=== PATIENT | female | born 1950 | race Caucasian/White ===

== ENCOUNTER → 2018-07-25 | Outpatient (CLI) | payer OTHER ==
[~2018-07-25] MED LIST: AMOX1TAB12 PO; AVAPRO150 MG; HUMALOG MIX 75/10 ML; LEVSIN/SL0.125 MG SL; LIPITOR40 MG; MUPIROCIN22 GM TOP; NEURONTIN600 MG; NEURONTIN800 MG; OMEPRAZOLE20 MG; PHENERGAN25 MG PO; PLAVIX75 MG; PNEU16DI2; PREDNISONE10 MG PO; ULTRACET PO; VITAMIN B122500 MC1
== END | disposition home or self-care (01) ==
LOC: NUCLEAR 10:00
DX: I73.9 Peripheral vascular disease, unspecified (principal); M79.662 Pain in left lower leg; M79.661 Pain in right lower leg

== ENCOUNTER 2019-05-17 21:49 | Emergency (ER) | payer OTHER ==
[~2019-05-17] VITALS: Ht 170.2 cm; Wt 136.1 kg
[2019-05-17] MEDS ORDERED: DOLOGEN CAPLET1 EACH (22:40)
[2019-05-17] MEDS ORDERED: ANASTROZOLE (22:40)
[2019-05-18] MEDS ORDERED: ULTRACET PO (02:59)
[2019-05-18] MEDS ORDERED: NORFLEX100MG PO (03:00)
== END 2019-05-18 03:08 | disposition home or self-care (01) ==
LOC: ER 21:49
DX: M54.5 Low back pain (principal)

== ENCOUNTER 2020-02-12 10:20 | Outpatient (CLI) | payer OTHER ==
[~2020-02-12 10:20] MED LIST changes: +ANASTROZOLE; +DOLOGEN CAPLET1 EACH; +NORFLEX100MG PO
== END 2020-02-12 10:25 | disposition home or self-care (01) ==
LOC: NUCLEAR 10:20
PROVIDERS: ATTEND Family Medicine
DX: E11.42 Type 2 diabetes mellitus with diabetic polyneuropathy (principal); Z75.4 Unavailability and inaccessibility of other helping agencies; E11.51 Type 2 diabetes mellitus with diabetic peripheral angiopathy without gangrene; I73.9 Peripheral vascular disease, unspecified; M25.561 Pain in right knee; M25.562 Pain in left knee; I87.2 Venous insufficiency (chronic) (peripheral)

== ENCOUNTER 2020-02-12 11:55 | Outpatient (CLI) | payer OTHER | END 2020-02-12 12:07 | disposition home or self-care (01) | LOC: MAMO-SONO 11:55 | PROVIDERS: ATTEND Family Medicine | DX: Z12.31 Encounter for screening mammogram for malignant neoplasm of breast (principal); C50.012 Malignant neoplasm of nipple and areola, left female breast ==

== ENCOUNTER 2020-09-07 15:50 | Emergency (ER) | payer OTHER ==
[~2020-09-07] VITALS: Ht 170.2 cm; Wt 102.1 kg
== END 2020-09-07 18:57 | disposition home or self-care (01) ==
LOC: ER 15:50
DX: R21 Rash and other nonspecific skin eruption (principal); T78.49XA Other allergy, initial encounter; X58.XXXA Exposure to other specified factors, initial encounter

== ENCOUNTER 2020-09-12 15:09 | Outpatient (CLI) | payer OTHER | END 2020-09-12 15:18 | disposition home or self-care (01) | LOC: MAMO-SONO 15:09 | PROVIDERS: ATTEND Internal Medicine | DX: N60.01 Solitary cyst of right breast (principal); Z12.31 Encounter for screening mammogram for malignant neoplasm of breast; N60.11 Diffuse cystic mastopathy of right breast; N60.12 Diffuse cystic mastopathy of left breast; C50.312 Malignant neoplasm of lower-inner quadrant of left female breast ==

== ENCOUNTER 2020-12-19 18:29 | Emergency (ER) | payer OTHER ==
[~2020-12-19] VITALS: Ht 175.3 cm; Wt 108.9 kg
== END 2020-12-19 23:45 | disposition home or self-care (01) ==
LOC: ER 18:29
DX: M54.2 Cervicalgia (principal); M62.838 Other muscle spasm; N20.0 Calculus of kidney; N39.0 Urinary tract infection, site not specified

== ENCOUNTER 2021-02-15 23:53 | Inpatient (IN) | payer OTHER ==
[~2021-02-15] VITALS: Ht 172.7 cm; Wt 124.7 kg
== END 2021-02-18 15:10 | disposition home or self-care (01) | DRG 392 ==
LOC: ER 23:53 → MEDI 02-16 09:23
PROVIDERS: ADMIT Internal Medicine; ATTEND Internal Medicine
DX: K52.89 Other specified noninfective gastroenteritis and colitis (principal); R65.10 Systemic inflammatory response syndrome (SIRS) of non-infectious origin without acute organ dysfunction; R10.9 Unspecified abdominal pain; R19.7 Diarrhea, unspecified; I10 Essential (primary) hypertension; E11.9 Type 2 diabetes mellitus without complications; Z20.822 Contact with and (suspected) exposure to COVID-19; E66.01 Morbid (severe) obesity due to excess calories; E78.49 Other hyperlipidemia

== ENCOUNTER 2021-09-28 13:44 | Outpatient (CLI) | payer OTHER | END 2021-09-28 13:58 | disposition home or self-care (01) | LOC: MAMO-SONO 13:44 | PROVIDERS: ATTEND Internal Medicine | DX: Z12.31 Encounter for screening mammogram for malignant neoplasm of breast (principal); N60.11 Diffuse cystic mastopathy of right breast; N60.12 Diffuse cystic mastopathy of left breast ==

== ENCOUNTER 2022-05-29 16:38 | Emergency (ER) | payer OTHER ==
[~2022-05-29] VITALS: Ht 172.7 cm; Wt 120.7 kg
[2022-05-29] MEDS ORDERED: CYCLOBENZAPRINE10 MG PO (23:37)
[2022-05-29] MEDS ORDERED: TYLENOL ARTHRI650 MG PO (23:37)
== END 2022-05-29 23:51 | disposition home or self-care (01) ==
LOC: ER 16:38
DX: S29.9XXA Unspecified injury of thorax, initial encounter (principal); W18.30XA Fall on same level, unspecified, initial encounter; Y93.9 Activity, unspecified; Y92.413 State road as the place of occurrence of the external cause; S89.92XA Unspecified injury of left lower leg, initial encounter; S09.90XA Unspecified injury of head, initial encounter; Z88.6 Allergy status to analgesic agent; M79.7 Fibromyalgia; I10 Essential (primary) hypertension

== ENCOUNTER 2024-11-16 14:28 | Outpatient (CLI) | payer OTHER ==
[~2024-11-16 14:28] MED LIST changes: +ANASTROZOLE1 MG; +CYCLOBENZAPRINE10 MG PO; +GABAPENTIN600 MG; +GRALISE600 MG PO; +HUMALOG MI100 UNIT/2; +IRBESARTAN150 MG; +LIPITOR40 M1 PO; +LOSARTAN POTASS50 MG PO; +PLAVIX75 MG PO; +PRILOSEC OTC20 MG PO; +TYLENOL ARTHRI650 MG PO
== END 2024-11-16 14:31 | disposition home or self-care (01) ==
LOC: MAMO-SONO 14:28
PROVIDERS: ATTEND Obstetrics & Gynecology Obstetrics
DX: C50.312 Malignant neoplasm of lower-inner quadrant of left female breast (principal); N60.11 Diffuse cystic mastopathy of right breast; N60.12 Diffuse cystic mastopathy of left breast; Z12.31 Encounter for screening mammogram for malignant neoplasm of breast

== ENCOUNTER 2024-12-24 03:02 | Inpatient (IN) | payer OTHER ==
[~2024-12-24] VITALS: Ht 172.7 cm; Wt 67.6 kg
[2024-12-24] MEDS ORDERED: ANASTROZOLE1 MG PO (03:15)
--- NOTE | 2024-12-24 03:20 | NUR ---
SE RECIBE PTE ALERTA Y ORIENTADA X3. PTE REFIERE MARISSA DOLOR EN BRAZO SOM HACE MARYJANE CRAMER REFIERE QUE SE LEVANTO CON EL DOLOR. SE MIDEN S/V Y SE UBICA.
[2024-12-24] MEDS ORDERED: MORPHINE SULFATE 4 MG/ML VIAL IV STA (06:39)
[2024-12-24] MEDS ORDERED: CEFTRIAXONE SODIUM 2,000 MG VIAL IV ONE (08:30)
--- NOTE | 2024-12-24 08:33 | NUR ---
SE ORIENTA A PACIENTE SOBRE TX MEDICO Y EL MISMO REFIERE ENTENDER Y ACEPTAR. SE RODRIGO S/V A PACIENTE BP: 175/92 Y SE ADMINISTRA MEDICAMENTO PHILLIP ORDEN MEDICA BAJO MEDIDAS ASEPTICAS. SE RODRIGO MUESTRAS DE LABORATORIO BAJO MEDIDAS ASEPTICAS.
[2024-12-24 08:39] LABS: BASO % 0.2 % (0.1-1.2); EOS # 0.07 (0.04-0.54); EOS % 0.7 % (0.7-7.0); HEMATOCRIT 34.4 % (34.1-44.9); LYMPH # 2.34 (1.18-3.74); LYMPH % 23.2 % (19.3-53.1); MEAN CORPUSCULAR HEMOGLOBIN 27.6 pg (25.6-32.2); MONO # 0.93 (0.24-0.82); MONO % 9.2 % (4.7-12.5); NEUT % 66.3 % (34.0-71.1); PLATELET COUNT 227 K/uL (163-369); RED BLOOD COUNT 3.99 M/uL (3.93-5.22); RED CELL DISTRIBUTION WIDTH 14.3 % (11.6-14.4)
[2024-12-24 09:13] LABS: ALBUMIN 3.4 gm/dL (3.4-5.0); BILIRUBIN TOTAL 0.85 mg/dL (0.3-1.2); CALCIUM 9.1 mg/dL (8.5-10.1); CREATININE SERUM 0.77 mg/dL (0.55-1.02); GFR 73.28; GLOBULINA 3.9 G/DL (2.4-3.5); POTASSIUM 3.5 mEq/L (3.5-5.1); TOTAL PROTEIN 7.3 gm/dL (6.4-8.2)
[2024-12-24 09:14] LABS: INR 1.14; PARTIAL THROMBOPLASTIN TIME 26.8 SECONDS (22.0-34.0); PROTHROMBIN TIME 12.3 SECONDS (9.0-11.5)
[2024-12-24 09:18] LABS: PH,URINE 5.5 (5.0-8.0); URINE APPEARANCE Clear; URINE BILIRRUBIN Negative (NEGATIVE); URINE BLOOD Negative; URINE COLOR Yellow; URINE GLUCOSE Negative (NEGATIVE); URINE KETONE Negative (NEGATIVE); URINE LEUKOCYTE Negative; URINE NITRATE Negative
[2024-12-24 09:19] LABS: URINE BACTERIA 83.2 uL (0.0-1933); URINE EPITHELIAL CELLS 3.7 uL (0.0-38.8); URINE RBC 17.5 uL (0.0-20.8)
[2024-12-24 09:47] LABS: URINE CAST 0.14 uL (0.0-1.40); URINE PROTEIN 100 (NEGATIVE)
[2024-12-24] MEDS ORDERED: CEFTRIAXONE SODIUM 1,000 MG VIAL ONE (13:57)
[2024-12-24] MEDS ORDERED: 0.9 % SODIUM CHLORIDE 1,000 ML IV SCH (20:00)
[2024-12-24] MEDS ORDERED: CEFTRIAXONE SODIUM 2,000 MG in 0.9 % SODIUM CHLORIDE 100 ML IV SCH (20:08)
[2024-12-24] MEDS ORDERED: LOSARTAN POTASSIUM 50 MG TABLET PO SCH (20:08)
[2024-12-24] MEDS ORDERED: ENOXAPARIN SODIUM 40 MG/0.4 ML SYRINGE SUBCUTANEO SCH (20:09)
[2024-12-24] MEDS ORDERED: INSULIN LISPRO 1,000 UNIT/10 ML UNITS SUBCUTANEO PRN (20:15)
[2024-12-24] MEDS ORDERED: MORPHINE SULFATE 2 MG/ML CARTRIDGE IV SCH (20:15)
[2024-12-24] MEDS ORDERED: DEXTROSE 50 % IN WATER 0.5 G/ML DISP.SYRIN IV PRN (20:15)
[2024-12-24] MEDS ORDERED: CEFTRIAXONE SODIUM 2,000 MG VIAL ONE (23:41)
[2024-12-25] MEDS ORDERED: ENOXAPARIN SODIUM 40 MG/0.4 ML SYRINGE SUBCUTANEO ONE (00:51)
[2024-12-25] MEDS ORDERED: INSULIN LISPRO 1,000 UNIT/10 ML UNITS SUBCUTANEO ONE (00:52)
[2024-12-25 01:49] LABS: PHOSPHOROUS 3.4 mg/dL (2.5-4.9)
[2024-12-25 02:07] LABS: C-REACTIVE PROTEIN 7.32 MG/DL (0.00-0.29); MAGNESIUM 0.9 mg/dL (1.8-2.4)
[2024-12-25 08:59] VITALS: BP 162/79; O2SAT 94
[2024-12-25] MEDS ORDERED: ATORVASTATIN CALCIUM 40 MG TABLET PO SCH (09:00)
[2024-12-25] MEDS ORDERED: GABAPENTIN 600 MG TABLET PO SCH (09:00)
[2024-12-25] MEDS ORDERED: METHYLPREDNISOLONE SOD SUCC 40 MG VIAL IV SCH (12:06)
[2024-12-25] MEDS ORDERED: TRAMADOL HCL 50 MG TABLET PO SCH (13:00)
[2024-12-25] MEDS ORDERED: MAGNESIUM SULFATE IN WATER 4 GM/100 ML PIGGYBACK IV NR (14:05)
[2024-12-25 14:11] VITALS: BP 179/76; O2SAT 98
[2024-12-25 17:40] LABS: COVID-19 AG NEGATIVE (NEGATIVE)
[2024-12-25 18:21] VITALS: BP 172/57
[2024-12-25] MEDS ORDERED: VANCOMYCIN HCL 1,000 MG VIAL IV SCH (21:00)
[2024-12-25] MEDS ORDERED: CYCLOBENZAPRINE HCL 5 MG TABLET PO SCH (21:00)
[2024-12-25 22:51] LABS: PH,URINE 5.5 (5.0-8.0); URINE APPEARANCE Clear; URINE BILIRRUBIN Negative (NEGATIVE); URINE BLOOD Trace; URINE COLOR Yellow; URINE KETONE 15 (NEGATIVE); URINE LEUKOCYTE Negative; URINE NITRATE Negative; URINE PROTEIN 30 (NEGATIVE); URINE UROBILINOGEN 0.2 E.U./dl
[2024-12-25 22:52] LABS: URINE EPITHELIAL CELLS 1.4 uL (0.0-38.8); URINE RBC 23.2 uL (0.0-20.8)
[2024-12-25 22:59] LABS: URINE GLUCOSE 100 MG/DL (NEGATIVE)
[2024-12-26 00:42] VITALS: BP 174/76
[2024-12-26 08:27] VITALS: BP 191/75; O2SAT 95
[2024-12-26 08:32] LABS: BASO % 0.1 % (0.1-1.2); HEMATOCRIT 34.6 % (34.1-44.9); HEMOGLOBIN 11.1 g/dL (11.2-15.7); LYMPH # 1.14 (1.18-3.74); LYMPH % 11.9 % (19.3-53.1); MEAN CORPUSCULAR HEMOGLOBIN 27.6 pg (25.6-32.2); MONO % 3.1 % (4.7-12.5); NEUT # 8.07 (1.56-6.13); NEUT % 84.5 % (34.0-71.1); PLATELET COUNT 240 K/uL (163-369); RED BLOOD COUNT 4.02 M/uL (3.93-5.22); RED CELL DISTRIBUTION WIDTH 13.9 % (11.6-14.4)
[2024-12-26 08:47] LABS: BILIRUBIN TOTAL 0.5 mg/dL (0.3-1.2); CALCIUM 8.9 mg/dL (8.5-10.1); CREATININE SERUM 0.69 mg/dL (0.55-1.02); GFR 83.17; MAGNESIUM 2.3 mg/dL (1.8-2.4); PHOSPHOROUS 3.6 mg/dL (2.5-4.9)
[2024-12-26 08:55] LABS: C-REACTIVE PROTEIN 12.6 MG/DL (0.00-0.29)
[2024-12-26] MEDS ORDERED: INSULIN GLARGINE,HUM.REC.ANLOG 1,000 UNITS/10 ML UNITS SUBCUTANEO STA (10:47)
[2024-12-26] MEDS ORDERED: INSULIN LISPRO 1,000 UNIT/10 ML UNITS SUBCUTANEO SCH (12:00)
[2024-12-26 16:00] VITALS: BP 164/70; O2SAT 95
[2024-12-26] MEDS ORDERED: INSULIN GLARGINE,HUM.REC.ANLOG 1,000 UNITS/10 ML UNITS SUBCUTANEO SCH (21:00)
[2024-12-27 00:44] VITALS: BP 170/78
[2024-12-27 08:42] VITALS: BP 151/80; O2SAT 97
[2024-12-27] MEDS ORDERED: INSULIN GLARGINE,HUM.REC.ANLOG 1,000 UNITS/10 ML UNITS SUBCUTANEO SCH ×2 (09:00→21:00)
[2024-12-27] MEDS ORDERED: INSULIN LISPRO 1,000 UNIT/10 ML UNITS SUBCUTANEO SCH (12:00)
[2024-12-27 16:00] VITALS: BP 163/65; O2SAT 96
[2024-12-27 16:27] LABS: BASO % 0.1 % (0.1-1.2); HEMATOCRIT 34.9 % (34.1-44.9); HEMOGLOBIN 11.3 g/dL (11.2-15.7); LYMPH % 9.7 % (19.3-53.1); MONO # 0.44 (0.24-0.82); NEUT # 12.58 (1.56-6.13); NEUT % 86.9 % (34.0-71.1); PLATELET COUNT 274 K/uL (163-369); RED BLOOD COUNT 4.04 M/uL (3.93-5.22); RED CELL DISTRIBUTION WIDTH 13.6 % (11.6-14.4)
[2024-12-27 16:38] LABS: CALCIUM 9.3 mg/dL (8.5-10.1); CREATININE SERUM 0.86 mg/dL (0.55-1.02); GFR 64.5; POTASSIUM 3.68 mEq/L (3.5-5.1)
[2024-12-27 16:40] LABS: C-REACTIVE PROTEIN 6.98 MG/DL (0.00-0.29)
[2024-12-28 01:18] VITALS: BP 194/64
[2024-12-28 09:02] VITALS: BP 184/70; O2SAT 97
[2024-12-28 17:08] VITALS: BP 195/72; O2SAT 94
== END 2024-12-28 17:32 | disposition home or self-care (01) | DRG 603 ==
LOC: ER 03:17 → SEC-K 20:37 → MEDJ 12-25 13:25
PROVIDERS: General Practice; Internal Medicine; Internal Medicine Infectious Disease; ADMIT Internal Medicine; ATTEND Internal Medicine
PROC: B34JZZZ Ultrasonography of Left Upper Extremity Arteries (ICD-10-PCS; principal; 2024-12-24)
PROC: B54NZZZ Ultrasonography of Left Upper Extremity Veins (ICD-10-PCS; 2024-12-24)
DX: L03.114 Cellulitis of left upper limb (principal); I73.89 Other specified peripheral vascular diseases; I10 Essential (primary) hypertension; E78.5 Hyperlipidemia, unspecified; E66.9 Obesity, unspecified; E11.9 Type 2 diabetes mellitus without complications; Z79.4 Long term (current) use of insulin